=== PATIENT | male | born 1995 | race Caucasian/White ===

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

== ENCOUNTER 2024-01-02 19:52 | Inpatient (IN) | payer BC ==
[~2024-01-02] VITALS: Ht 193 cm; Wt 96.6 kg
[2024-01-02 20:02] VITALS: BP_SYST 123; PULSE 128; RESP 20; TEMP 98; O2SAT 99
[2024-01-02] MEDS: IBUPROFEN 800 MG TABLET PO ONE (21:48)
[2024-01-02] MEDS: HYDROcodone/ACETAMIN 10-325 MG TAB PO ONE (21:49)
[2024-01-02 22:08] LABS: BASOPHILS # (AUTO) 0.1 K/uL (0.0-0.2); BASOPHILS % (AUTO) 0.6 % (0.0-2.0); EOSINOPHILS # (AUTO) 0.2 K/uL (0.0-0.4); EOSINOPHILS % (AUTO) 1.2 % (0.0-4.0); HEMATOCRIT 47.7 % (36-54); LYMPHOCYTES # (AUTO) 2.7 K/uL (1.0-5.5); LYMPHOCYTES % (AUTO) 18.1 % (20.5-51.5); MEAN CORPUSCULAR HEMOGLOBIN 29 pg (27-31); MEAN CORPUSCULAR HGB CONC 34 % (32-36); MEAN CORPUSCULAR VOLUME 87 fL (79.0-98.0); MONOCYTES # (AUTO) 1.3 K/uL (0.0-1.0); MONOCYTES % (AUTO) 8.6 % (1.7-9.3); NEUTROPHILS # (AUTO) 10.6 K/uL (1.8-7.7); NEUTROPHILS % (AUTO) 71.5 % (40.0-70.0); PLATELET COUNT (AUTO) 238 K/uL (130-430); RED BLOOD CELL COUNT(AUTO) 5.48 MIL/uL (4.2-6.2); RED CELL DISTRIBUTION WIDTH 13.4 % (9.0-15.0); WHITE BLOOD COUNT (AUTO) 14.8 K/uL (4.8-10.8)
[2024-01-02] MEDS ORDERED: VANCOMYCIN HCL 1000 MG/VIAL IV ONE (22:34)
[2024-01-02 22:45] LABS: CALCIUM 9.1 mg/dL (8.4-11.0); CREATININE 0.87 mg/dL (0.55-1.30); POTASSIUM 3.7 mmol/L (3.5-5.1)
[2024-01-02] MEDS: VANCOMYCIN HCL 1,000 MG in NS 250 ML IV ONE (22:58)
[2024-01-02] MEDS: NACL 0.9% 2,000 ML IV ONE (23:15)
[2024-01-02] MEDS: MORPHINE 4 MG INJ. 4 MG/ML VIAL IVP ONE (23:18)
[2024-01-02] MEDS ORDERED: HYDROcodone/ACETAMIN 5-325 MG TAB (NORCO/ VICODIN) PO PRN (23:30)
[2024-01-02] MEDS ORDERED: ACETAMINOPHEN 500 MG TABLET PO PRN (23:30)
[2024-01-03] VITALS (7 sets, daily range): BP systolic 131–148; PULSE 95–105; RESP 15–18; TEMP 97.4–98.6; O2SAT 97–100
[2024-01-03] MEDS: HYDROcodone/ACETAMIN 10-325 MG TAB PO PRN (01:47)
[2024-01-03] MEDS: PIPERACILLIN/TAZO 3.375 GM in NS 50 ML IV ONE (02:03)
[2024-01-03] MEDS: PIPERACILLIN/TAZOBACTAM 3.375 GM/VIAL (ZOSYN) IV ONE (02:04)
[2024-01-03] MEDS ORDERED: ONDANSETRON HCL 4 MG/2 ML VIAL IVP PRN (10:15)
[2024-01-03 10:33] LABS: BASOPHILS % (AUTO) 0.2 % (0.0-2.0); EOSINOPHILS # (AUTO) 0.2 K/uL (0.0-0.4); HEMATOCRIT 45.4 % (36-54); HEMOGLOBIN 14.9 g/dL (14.0-18.0); LYMPHOCYTES # (AUTO) 2.7 K/uL (1.0-5.5); LYMPHOCYTES % (AUTO) 22.1 % (20.5-51.5); MEAN CORPUSCULAR HEMOGLOBIN 29 pg (27-31); MEAN CORPUSCULAR HGB CONC 33 % (32-36); MEAN CORPUSCULAR VOLUME 88 fL (79.0-98.0); MONOCYTES # (AUTO) 1.3 K/uL (0.0-1.0); MONOCYTES % (AUTO) 10.6 % (1.7-9.3); NEUTROPHILS # (AUTO) 7.9 K/uL (1.8-7.7); NEUTROPHILS % (AUTO) 65.1 % (40.0-70.0); PLATELET COUNT (AUTO) 222 K/uL (130-430); RED BLOOD CELL COUNT(AUTO) 5.16 MIL/uL (4.2-6.2); RED CELL DISTRIBUTION WIDTH 13.4 % (9.0-15.0); WHITE BLOOD COUNT (AUTO) 12.2 K/uL (4.8-10.8)
[2024-01-03 10:47] LABS: CALCIUM 8.9 mg/dL (8.4-11.0); CREATININE 0.81 mg/dL (0.55-1.30); POTASSIUM 4.3 mmol/L (3.5-5.1)
[2024-01-03] MEDS: cefTRIAXone 1 GM IVPB PREMIX 50 ML IV SCH (11:51)
[2024-01-03] MEDS: NORMAL SALINE 5 ML DISP.SYRIN IVF SCH (13:53)
[2024-01-03] MEDS: CLINDAMYCIN 600 MG in D5W 50 ML IV SCH (17:28)
[2024-01-03] MEDS: OXYCODONE/ACETAMINOPHEN 5-325 TABLET PO PRN (20:06)
[2024-01-03] MEDS: CEFTAROLINE FOSAMIL ACETATE 600 MG in NS 250 ML IV SCH (22:41)
[2024-01-04] VITALS (7 sets, daily range): BP systolic 108–150; PULSE 80–87; RESP 16–18; TEMP 98–98.7; O2SAT 96–98
[2024-01-04 08:40] LABS: BASOPHILS % (AUTO) 0.3 % (0.0-2.0); EOSINOPHILS # (AUTO) 0.2 K/uL (0.0-0.4); EOSINOPHILS % (AUTO) 1.7 % (0.0-4.0); HEMATOCRIT 45.7 % (36-54); HEMOGLOBIN 15.1 g/dL (14.0-18.0); LYMPHOCYTES # (AUTO) 2.4 K/uL (1.0-5.5); LYMPHOCYTES % (AUTO) 20.2 % (20.5-51.5); MEAN CORPUSCULAR HEMOGLOBIN 29 pg (27-31); MEAN CORPUSCULAR HGB CONC 33 % (32-36); MEAN CORPUSCULAR VOLUME 87 fL (79.0-98.0); MONOCYTES # (AUTO) 1.2 K/uL (0.0-1.0); NEUTROPHILS % (AUTO) 67.8 % (40.0-70.0); PLATELET COUNT (AUTO) 224 K/uL (130-430); RED BLOOD CELL COUNT(AUTO) 5.23 MIL/uL (4.2-6.2); RED CELL DISTRIBUTION WIDTH 13.5 % (9.0-15.0); WHITE BLOOD COUNT (AUTO) 11.8 K/uL (4.8-10.8)
[2024-01-04 09:21] LABS: ALBUMIN 3.5 g/dL (3.4-4.8); CALCIUM 9.2 mg/dL (8.4-11.0); CREATININE 0.73 mg/dL (0.55-1.30); POTASSIUM 4.1 mmol/L (3.5-5.1); TOTAL BILIRUBIN 0.2 mg/dL (0.0-1.0); TOTAL PROTEIN, SERUM 7.1 g/dL (6.4-8.3)
[2024-01-04 10:52] LABS: PROTHROMBIN TIME 10.4 SECS (9.5-12.5)
[2024-01-04 11:04] LABS: BILIRUBIN,URINE NEGATIVE (NEGATIVE); BLOOD, URINE NEGATIVE (NEGATIVE); CLARITY/URINE CLEAR (CLEAR); COLOR,URINE YELLOW (YELLOW); GLUCOSE,URINE NEGATIVE (NEGATIVE); KETONES,URINE NEGATIVE (NEGATIVE); LEUKOCYTE ESTERASE ,URINE NEGATIVE (NEGATIVE); NITRITE, URINE NEGATIVE (NEGATIVE); PROTEIN URINE NEGATIVE (NEGATIVE); UROBILINOGEN,URINE 0.2 (0.2-1.0)
[2024-01-04] MEDS: fentaNYL CITRATE/PF 100 MCG/2 ML AMP ONE (11:32)
[2024-01-04] MEDS: MIDAZOLAM HCL 2 MG/2 ML VIAL (VERSED) ONE (11:33)
[2024-01-04] MEDS: MIDAZOLAM HCL 5 MG/5 ML VIAL IVP ONE (11:56)
[2024-01-04] MEDS: MORPHINE 4 MG INJ. 4 MG/ML VIAL IVP ONE (16:12)
[2024-01-05 00:05] VITALS: RESP 16
[2024-01-05 04:19] VITALS: RESP 18
[2024-01-05 05:48] LABS: BASOPHILS % (AUTO) 0.2 % (0.0-2.0); EOSINOPHILS # (AUTO) 0.2 K/uL (0.0-0.4); EOSINOPHILS % (AUTO) 2.4 % (0.0-4.0); HEMATOCRIT 47.6 % (36-54); HEMOGLOBIN 15.8 g/dL (14.0-18.0); LYMPHOCYTES # (AUTO) 2.3 K/uL (1.0-5.5); LYMPHOCYTES % (AUTO) 23.7 % (20.5-51.5); MEAN CORPUSCULAR HEMOGLOBIN 29 pg (27-31); MEAN CORPUSCULAR HGB CONC 33 % (32-36); MEAN CORPUSCULAR VOLUME 88 fL (79.0-98.0); MONOCYTES # (AUTO) 1.1 K/uL (0.0-1.0); MONOCYTES % (AUTO) 11.1 % (1.7-9.3); NEUTROPHILS # (AUTO) 6.2 K/uL (1.8-7.7); NEUTROPHILS % (AUTO) 62.6 % (40.0-70.0); PLATELET COUNT (AUTO) 229 K/uL (130-430); RED BLOOD CELL COUNT(AUTO) 5.42 MIL/uL (4.2-6.2); RED CELL DISTRIBUTION WIDTH 13.5 % (9.0-15.0); WHITE BLOOD COUNT (AUTO) 9.8 K/uL (4.8-10.8)
[2024-01-05 05:55] LABS: ERYTHROCYTE SEDIMENTATION RATE 47 MM/HR (0-15)
[2024-01-05 06:05] LABS: CALCIUM 9.2 mg/dL (8.4-11.0); CREATININE 0.73 mg/dL (0.55-1.30); POTASSIUM 3.8 mmol/L (3.5-5.1)
[2024-01-05 10:00] VITALS: O2SAT 100
[2024-01-05 11:02] VITALS: BP_SYST 157; PULSE 91; RESP 16; TEMP 98.3; O2SAT 96
[2024-01-05 15:02] VITALS: BP_SYST 135; PULSE 82; RESP 16; TEMP 97.8; O2SAT 95
[2024-01-05] MEDS: NEOMY SULF/BACITRAC ZN/POLY 28 GM OINT..GM. TP ONE (16:50)
[2024-01-05 20:02] VITALS: BP_SYST 148; PULSE 70; RESP 18; TEMP 98.1; O2SAT 97
[2024-01-05] MEDS: NEOMY SULF/BACITRAC ZN/POLY 28 GM OINT..GM. TP SCH (21:45)
[2024-01-05] MEDS: MUPIROCIN 2% TOPICAL OINTMENT 22 GM NS SCH (21:46)
[2024-01-06 00:23] VITALS: BP_SYST 144; PULSE 97; RESP 18; TEMP 98.5
[2024-01-06 06:26] LABS: CALCIUM 9.3 mg/dL (8.4-11.0); CREATININE 0.8 mg/dL (0.55-1.30)
[2024-01-06 06:30] LABS: BASOPHILS % (AUTO) 0.5 % (0.0-2.0); EOSINOPHILS # (AUTO) 0.3 K/uL (0.0-0.4); EOSINOPHILS % (AUTO) 2.9 % (0.0-4.0); HEMATOCRIT 46.4 % (36-54); HEMOGLOBIN 15.5 g/dL (14.0-18.0); LYMPHOCYTES % (AUTO) 19.9 % (20.5-51.5); MEAN CORPUSCULAR HEMOGLOBIN 29 pg (27-31); MEAN CORPUSCULAR HGB CONC 33 % (32-36); MEAN CORPUSCULAR VOLUME 88 fL (79.0-98.0); MONOCYTES # (AUTO) 1.1 K/uL (0.0-1.0); MONOCYTES % (AUTO) 11.4 % (1.7-9.3); NEUTROPHILS # (AUTO) 6.6 K/uL (1.8-7.7); NEUTROPHILS % (AUTO) 65.3 % (40.0-70.0); PLATELET COUNT (AUTO) 215 K/uL (130-430); RED CELL DISTRIBUTION WIDTH 13.2 % (9.0-15.0); WHITE BLOOD COUNT (AUTO) 10.1 K/uL (4.8-10.8)
[2024-01-06 07:33] LABS: ERYTHROCYTE SEDIMENTATION RATE 43 MM/HR (0-15)
[2024-01-06] MEDS: LORazepam 2 MG/ML VIAL IVP PRN (08:22)
[2024-01-06] MEDS ORDERED: PERC10 PO (09:59)
[2024-01-06] MEDS ORDERED: CLIN-142 PO (09:59)
[2024-01-06] MEDS ORDERED: NEOM30OI34 TP (09:59)
[2024-01-06] MEDS ORDERED: LINE600T12 PO (09:59)
[2024-01-06] MEDS ORDERED: CHLO118L TP ×2 (09:59)
[2024-01-06 10:00] VITALS: O2SAT 96
[2024-01-06 11:05] VITALS: BP_SYST 153; PULSE 91; RESP 16; TEMP 98.1; O2SAT 96
[2024-01-06 12:40] VITALS: BP_SYST 153; PULSE 91; RESP 16; TEMP 98.1; O2SAT 96
== END 2024-01-06 13:22 | disposition home or self-care (01) | DRG 872 ==
LOC: SED 19:52 → SMU 23:21
PROVIDERS: ADMIT Preventive Medicine Preventive Medicine/Occupational Environmental Medicine; ATTEND Preventive Medicine Preventive Medicine/Occupational Environmental Medicine
PROC: 0X9J0ZZ Drainage of Right Hand, Open Approach (ICD-10-PCS; principal; 2024-01-04 11:45)
DX: A41.9 Sepsis, unspecified organism (principal); L03.113 Cellulitis of right upper limb; M00.841 Arthritis due to other bacteria, right hand; B95.62 Methicillin resistant Staphylococcus aureus infection as the cause of diseases classified elsewhere; M65.841 Other synovitis and tenosynovitis, right hand; Z87.891 Personal history of nicotine dependence
CPT/HCPCS: 36415; 73140; 73201; 80048; 80053; 81001; 81003; 83605; 85025; 85610; 85651; 87040; 87070; 87075; 87077; 87081; 87186; 96365; 99285; J0696; J0712; J2060; J2250; J2270; J2543; J3010; J3370; J3465; J3490; J7050; J7060; Q9967